=== PATIENT | female | born 1960 | race Caucasian/White ===

== ENCOUNTER 2017-06-07 08:23 | Outpatient (CLI) | payer OTHER ==
[2017-06-07 09:34] LABS: ALBUMIN 3.8 g/dL (3.4-4.8); CALCIUM 8.3 mg/dL (8.4-11.0); CREATININE 0.57 mg/dL (0.55-1.30); POTASSIUM 3.7 mmol/L (3.5-5.1); THYROID STIMULATING HORMONE 1.77 uIu/mL (0.34-4.82); TOTAL BILIRUBIN 0.7 mg/dL (0.0-1.0); TOTAL PROTEIN, SERUM 7.3 g/dL (6.4-8.3)
[2017-06-08 11:14] LABS: HEMOGLOBIN A1C 5.8 % (4.8-5.6)
== END 2017-06-07 19:25 | disposition home or self-care (01) ==
LOC: SLB 08:23
PROVIDERS: ATTEND Internal Medicine
DX: N94.89 Other specified conditions associated with female genital organs and menstrual cycle (principal); E78.2 Mixed hyperlipidemia; E55.9 Vitamin D deficiency, unspecified; L30.9 Dermatitis, unspecified; R32 Unspecified urinary incontinence; R73.09 Other abnormal glucose
CPT/HCPCS: 36415; 80053; 80061; 82043; 82306; 82570; 83036; 84443-TC

== ENCOUNTER 2017-08-17 10:28 | Outpatient (CLI) | payer OTHER | END 2017-08-17 21:49 | disposition home or self-care (01) | LOC: SMA 10:28 | PROVIDERS: ATTEND Specialist | DX: Z12.31 Encounter for screening mammogram for malignant neoplasm of breast (principal) | CPT/HCPCS: G0202 ==

== ENCOUNTER 2017-08-31 09:25 | Outpatient (CLI) | payer OTHER ==
[2017-08-31 10:18] LABS: CALCIUM 9.2 mg/dL (8.4-11.0); CREATININE 0.61 mg/dL (0.55-1.30); TOTAL BILIRUBIN 0.8 mg/dL (0.0-1.0)
== END 2017-08-31 19:46 | disposition home or self-care (01) ==
LOC: SLB 09:25
PROVIDERS: ATTEND Internal Medicine
DX: E78.2 Mixed hyperlipidemia (principal); E55.9 Vitamin D deficiency, unspecified; R73.09 Other abnormal glucose
CPT/HCPCS: 36415; 80053; 80061

== ENCOUNTER 2017-10-07 09:14 | Outpatient (CLI) | payer OTHER ==
[2017-10-07 10:04] LABS: ALBUMIN 4.1 g/dL (3.4-4.8); CREATININE 0.51 mg/dL (0.55-1.30); POTASSIUM 3.6 mmol/L (3.5-5.1); TOTAL BILIRUBIN 0.9 mg/dL (0.0-1.0)
== END 2017-10-07 17:25 | disposition home or self-care (01) ==
LOC: SLB 09:14
PROVIDERS: ATTEND Internal Medicine
DX: E78.5 Hyperlipidemia, unspecified (principal)
CPT/HCPCS: 36415; 80053; 80061; 83036

== ENCOUNTER 2017-11-23 09:01 | Outpatient (CLI) | payer OTHER ==
[2017-11-23 10:16] LABS: ALBUMIN 4.1 g/dL (3.4-4.8); CALCIUM 9.3 mg/dL (8.4-11.0); CREATININE 0.52 mg/dL (0.55-1.30); POTASSIUM 3.4 mmol/L (3.5-5.1); TOTAL BILIRUBIN 0.4 mg/dL (0.0-1.0)
== END 2017-11-23 19:45 | disposition home or self-care (01) ==
LOC: SLB 09:01
PROVIDERS: ATTEND Internal Medicine
DX: E78.2 Mixed hyperlipidemia (principal); R73.09 Other abnormal glucose
CPT/HCPCS: 36415; 80053; 80061

== ENCOUNTER 2018-01-04 08:57 | Outpatient (CLI) | payer OTHER ==
[2018-01-04 09:54] LABS: ALBUMIN 3.9 g/dL (3.4-4.8); CALCIUM 8.8 mg/dL (8.4-11.0); CREATININE 0.47 mg/dL (0.55-1.30); POTASSIUM 3.6 mmol/L (3.5-5.1); TOTAL BILIRUBIN 0.9 mg/dL (0.0-1.0)
== END 2018-01-04 19:01 | disposition home or self-care (01) ==
LOC: SLB 08:57
PROVIDERS: ATTEND Internal Medicine
DX: E78.2 Mixed hyperlipidemia (principal); E87.6 Hypokalemia
CPT/HCPCS: 36415; 80053; 80061

== ENCOUNTER 2018-04-19 09:29 | Outpatient (CLI) | payer OTHER ==
[2018-04-19 10:41] LABS: ALBUMIN 3.8 g/dL (3.4-4.8); CALCIUM 8.7 mg/dL (8.4-11.0); CREATININE 0.55 mg/dL (0.55-1.30); POTASSIUM 3.9 mmol/L (3.5-5.1); TOTAL BILIRUBIN 0.7 mg/dL (0.0-1.0)
== END 2018-04-19 19:21 | disposition home or self-care (01) ==
LOC: SLB 09:29
PROVIDERS: ATTEND Internal Medicine
DX: E78.5 Hyperlipidemia, unspecified (principal); R03.0 Elevated blood-pressure reading, without diagnosis of hypertension; R73.03 Prediabetes; E55.9 Vitamin D deficiency, unspecified
CPT/HCPCS: 36415; 80053; 80061; 82306; 83036

== ENCOUNTER 2018-08-18 09:14 | Outpatient (CLI) | payer OTHER ==
[2018-08-18 10:49] LABS: ALBUMIN 4.1 g/dL (3.4-4.8); CALCIUM 8.9 mg/dL (8.4-11.0); CREATININE 0.61 mg/dL (0.55-1.30); POTASSIUM 3.7 mmol/L (3.5-5.1); TOTAL BILIRUBIN 0.8 mg/dL (0.0-1.0)
== END 2018-08-18 20:47 | disposition home or self-care (01) ==
LOC: SMA 09:14
PROVIDERS: ATTEND Specialist
DX: Z12.31 Encounter for screening mammogram for malignant neoplasm of breast (principal); E78.2 Mixed hyperlipidemia; R73.03 Prediabetes
CPT/HCPCS: 36415; 77067; 80053; 80061

== ENCOUNTER 2018-12-01 09:01 | Outpatient (CLI) | payer OTHER ==
[2018-12-01 09:45] LABS: ALBUMIN 3.8 g/dL (3.4-4.8); CALCIUM 8.3 mg/dL (8.4-11.0); CREATININE 0.51 mg/dL (0.55-1.30); POTASSIUM 3.9 mmol/L (3.5-5.1); TOTAL BILIRUBIN 0.7 mg/dL (0.0-1.0)
== END 2018-12-01 19:31 | disposition home or self-care (01) ==
LOC: SLB 09:01
PROVIDERS: ATTEND Internal Medicine
DX: E55.9 Vitamin D deficiency, unspecified (principal); E78.2 Mixed hyperlipidemia; E66.9 Obesity, unspecified
CPT/HCPCS: 36415; 80053; 80061; 82607

== ENCOUNTER 2019-03-01 09:27 | Outpatient (CLI) | payer OTHER ==
[2019-03-01 10:05] LABS: ALBUMIN 3.8 g/dL (3.4-4.8); CALCIUM 8.9 mg/dL (8.4-11.0); CREATININE 0.6 mg/dL (0.55-1.30); POTASSIUM 3.7 mmol/L (3.5-5.1); TOTAL BILIRUBIN 0.8 mg/dL (0.0-1.0)
[2019-03-02 13:29] LABS: HEMOGLOBIN A1C 5.9 % (4.8-5.6)
== END 2019-03-01 20:34 | disposition home or self-care (01) ==
LOC: SLB 09:27
PROVIDERS: ATTEND Internal Medicine
DX: E78.2 Mixed hyperlipidemia (principal); E66.9 Obesity, unspecified; R73.03 Prediabetes
CPT/HCPCS: 36415; 80053; 80061; 82306; 83036

== ENCOUNTER 2019-06-16 09:32 | Outpatient (CLI) | payer OTHER ==
[2019-06-16 10:14] LABS: BASOPHILS % (AUTO) 0.8 % (0.0-2.0); EOSINOPHILS % (AUTO) 0.3 % (0.0-4.0); HEMOGLOBIN 13.5 g/dL (12.0-16.0); LYMPHOCYTES # (AUTO) 1.9 K/uL (1.0-5.5); LYMPHOCYTES % (AUTO) 34.6 % (20.5-51.5); MEAN CORPUSCULAR HEMOGLOBIN 27 pg (27-31); MEAN CORPUSCULAR HGB CONC 33 % (32-36); MEAN CORPUSCULAR VOLUME 81 fL (79.0-98.0); MONOCYTES # (AUTO) 0.4 K/uL (0.0-1.0); MONOCYTES % (AUTO) 7.5 % (1.7-9.3); NEUTROPHILS # (AUTO) 3.1 K/uL (1.8-7.7); NEUTROPHILS % (AUTO) 56.8 % (40.0-70.0); PLATELET COUNT (AUTO) 259 K/uL (130-430); RED BLOOD CELL COUNT(AUTO) 5.09 MIL/uL (4.2-6.2); RED CELL DISTRIBUTION WIDTH 14.7 % (9.0-15.0); WHITE BLOOD COUNT (AUTO) 5.4 K/uL (4.8-10.8)
[2019-06-16 10:29] LABS: ALBUMIN 3.7 g/dL (3.4-4.8); CALCIUM 8.8 mg/dL (8.4-11.0); CREATININE 0.6 mg/dL (0.55-1.30); POTASSIUM 3.4 mmol/L (3.5-5.1); TOTAL BILIRUBIN 0.8 mg/dL (0.0-1.0)
== END 2019-06-16 21:14 | disposition home or self-care (01) ==
LOC: SLB 09:32
PROVIDERS: ATTEND Internal Medicine
DX: E55.9 Vitamin D deficiency, unspecified (principal); E78.2 Mixed hyperlipidemia; R73.03 Prediabetes
CPT/HCPCS: 36415; 80053; 80061; 82306; 85025

== ENCOUNTER 2020-10-11 11:15 | Outpatient (CLI) | payer OTHER ==
[2020-10-11 13:00] LABS: BASOPHILS % (AUTO) 0.5 % (0.0-2.0); EOSINOPHILS % (AUTO) 0.5 % (0.0-4.0); LYMPHOCYTES # (AUTO) 2.3 K/uL (1.0-5.5); LYMPHOCYTES % (AUTO) 36.8 % (20.5-51.5); MEAN CORPUSCULAR HEMOGLOBIN 27 pg (27-31); MEAN CORPUSCULAR HGB CONC 33 % (32-36); MEAN CORPUSCULAR VOLUME 80 fL (79.0-98.0); MONOCYTES # (AUTO) 0.5 K/uL (0.0-1.0); MONOCYTES % (AUTO) 7.4 % (1.7-9.3); NEUTROPHILS # (AUTO) 3.5 K/uL (1.8-7.7); NEUTROPHILS % (AUTO) 54.8 % (40.0-70.0); PLATELET COUNT (AUTO) 266 K/uL (130-430); RED BLOOD CELL COUNT(AUTO) 5.23 MIL/uL (4.2-6.2); RED CELL DISTRIBUTION WIDTH 14.3 % (9.0-15.0); WHITE BLOOD COUNT (AUTO) 6.3 K/uL (4.8-10.8)
[2020-10-11 13:49] LABS: CALCIUM 8.4 mg/dL (8.4-11.0); CREATININE 0.6 mg/dL (0.55-1.30); POTASSIUM 3.3 mmol/L (3.5-5.1); THYROID STIMULATING HORMONE 2.12 uIu/mL (0.36-3.74); TOTAL BILIRUBIN 0.6 mg/dL (0.0-1.0)
== END 2020-10-11 17:03 | disposition home or self-care (01) ==
LOC: SLB 11:15
PROVIDERS: ATTEND Internal Medicine
DX: E78.2 Mixed hyperlipidemia (principal); E55.9 Vitamin D deficiency, unspecified; E66.9 Obesity, unspecified; R73.02 Impaired glucose tolerance (oral)
CPT/HCPCS: 36415; 80053; 80061; 82043; 82306; 82570; 83036; 84443-TC; 85025

== ENCOUNTER 2022-02-27 10:16 | Outpatient (CLI) | payer OTHER ==
[2022-02-27 10:48] LABS: BASOPHILS % (AUTO) 0.7 % (0.0-2.0); EOSINOPHILS % (AUTO) 0.4 % (0.0-4.0); HEMOGLOBIN 13.7 g/dL (12.0-16.0); LYMPHOCYTES # (AUTO) 1.7 K/uL (1.0-5.5); LYMPHOCYTES % (AUTO) 31.1 % (20.5-51.5); MEAN CORPUSCULAR HEMOGLOBIN 26 pg (27-31); MEAN CORPUSCULAR HGB CONC 33 % (32-36); MEAN CORPUSCULAR VOLUME 79 fL (79.0-98.0); MONOCYTES # (AUTO) 0.5 K/uL (0.0-1.0); MONOCYTES % (AUTO) 8.5 % (1.7-9.3); NEUTROPHILS # (AUTO) 3.2 K/uL (1.8-7.7); NEUTROPHILS % (AUTO) 59.3 % (40.0-70.0); PLATELET COUNT (AUTO) 259 K/uL (130-430); RED CELL DISTRIBUTION WIDTH 14.5 % (9.0-15.0); WHITE BLOOD COUNT (AUTO) 5.3 K/uL (4.8-10.8)
[2022-02-27 12:59] LABS: ALBUMIN 3.9 g/dL (3.4-4.8); CALCIUM 9.2 mg/dL (8.4-11.0); CREATININE 0.57 mg/dL (0.55-1.30); POTASSIUM 4.2 mmol/L (3.5-5.1); THYROID STIMULATING HORMONE 1.95 uIu/mL (0.36-3.74); TOTAL BILIRUBIN 0.7 mg/dL (0.0-1.0)
== END 2022-02-27 20:54 | disposition home or self-care (01) ==
LOC: SLB 10:16
PROVIDERS: ATTEND Internal Medicine
DX: Z00.00 Encounter for general adult medical examination without abnormal findings (principal); E78.5 Hyperlipidemia, unspecified; R73.03 Prediabetes; E66.9 Obesity, unspecified; E55.9 Vitamin D deficiency, unspecified; Z68.37 Body mass index [BMI] 37.0-37.9, adult
CPT/HCPCS: 36415; 80053; 80061; 82306; 83036; 84443; 85025

== ENCOUNTER 2022-06-17 09:00 | Outpatient (CLI) | payer OTHER ==
[2022-06-17 20:36] LABS: TRIGLYCERIDES 111 mg/dL (30-150)
[2022-06-17 20:37] LABS: CHOLESTEROL 226 mg/dL (<200); HDL CHOLESTEROL 43 mg/dL (>55); LDL CHOLESTEROL 163 mg/dL (<100)
== END 2022-06-17 20:16 | disposition home or self-care (01) ==
LOC: SLB 09:00
PROVIDERS: ATTEND Internal Medicine
DX: E78.00 Pure hypercholesterolemia, unspecified (principal); E55.9 Vitamin D deficiency, unspecified
CPT/HCPCS: 36415; 80061; 82306

== ENCOUNTER 2023-02-16 09:50 | Outpatient (CLI) | payer OTHER ==
[2023-02-16 10:47] LABS: BASOPHILS % (AUTO) 0.7 % (0.0-2.0); EOSINOPHILS % (AUTO) 0.6 % (0.0-4.0); HEMATOCRIT 40.7 % (36-48); HEMOGLOBIN 13.5 g/dL (12.0-16.0); LYMPHOCYTES # (AUTO) 1.6 K/uL (1.0-5.5); LYMPHOCYTES % (AUTO) 32.1 % (20.5-51.5); MEAN CORPUSCULAR HEMOGLOBIN 27 pg (27-31); MEAN CORPUSCULAR HGB CONC 33 % (32-36); MEAN CORPUSCULAR VOLUME 80 fL (79.0-98.0); MONOCYTES # (AUTO) 0.4 K/uL (0.0-1.0); MONOCYTES % (AUTO) 8.1 % (1.7-9.3); NEUTROPHILS % (AUTO) 58.5 % (40.0-70.0); PLATELET COUNT (AUTO) 247 K/uL (130-430); RED CELL DISTRIBUTION WIDTH 14.6 % (9.0-15.0); WHITE BLOOD COUNT (AUTO) 5.1 K/uL (4.8-10.8)
[2023-02-16 10:48] LABS: ALBUMIN 3.8 g/dL (3.4-4.8); CALCIUM 8.4 mg/dL (8.4-11.0); CREATININE 0.55 mg/dL (0.55-1.30); TOTAL BILIRUBIN 0.9 mg/dL (0.0-1.0)
== END 2023-02-16 20:23 | disposition home or self-care (01) ==
LOC: SLB 09:50
PROVIDERS: ATTEND Internal Medicine
DX: M76.891 Other specified enthesopathies of right lower limb, excluding foot (principal); R73.03 Prediabetes; E78.00 Pure hypercholesterolemia, unspecified; E55.9 Vitamin D deficiency, unspecified; M25.562 Pain in left knee; M25.561 Pain in right knee
CPT/HCPCS: 36415; 80053; 80061; 82306; 83037; 85025